=== PATIENT | female | born 1990 | race Two or more races ===

== ENCOUNTER 2024-08-09 14:00 | Inpatient (IN) | payer OTHER ==
[~2024-08-09] VITALS: Ht 162.6 cm; Wt 77.6 kg
[2024-08-25 02:20] VITALS: BP 127/72
[2024-08-25] MEDS ORDERED: RINGERS SOLUTION,LACTATED 1,000 ML IV SCH (03:00)
[2024-08-25] MEDS ORDERED: ERYTHROMYCIN BASE OPHT 1GM EACH TUBE OP ONE (03:01)
[2024-08-25] MEDS ORDERED: OXYTOCIN 20 UNITS/1000ML RL PIGGYBAG IV ONE (03:02)
[2024-08-25] MEDS ORDERED: LIDOCAINE HCL 1% 10ML VIAL ONE (03:02)
[2024-08-25] MEDS ORDERED: CHLORHEXIDINE GLUCONATE 120 ML BOTTLE TOP ONE (03:02)
[2024-08-25 03:10] LABS: HEMATOCRIT 39.6 % (36.0-45.00); HEMOGLOBIN 13.3 g/dL (12.0-15.00); MEAN CELL VOLUME 92.7 fL (80.00-100.00); MEAN CORPUSCULAR HEMOGLOBIN 31.2 pg (27.00-32.0); MEAN CORPUSCULAR HGB CONC 33.6 g/dl (32.0-36.0); PLATELET COUNT 278 K/uL (150-450); RED BLOOD COUNT 4.27 M/uL (4.00-6.00); RED CELL DISTRIBUTION WIDTH 14.8 % (11.5-14.5)
[2024-08-25] MEDS ORDERED: PRENATAL TABLE1 EAC1 PO (03:13)
[2024-08-25 03:39] LABS: INR < 0.93; PARTIAL THROMBOPLASTIN TIME 25.8 SECONDS (22.0-34.0); PROTHROMBIN TIME 9.9 SECONDS (9.0-11.5)
[2024-08-25 03:57] LABS: ALBUMIN 2.9 gm/dL (3.4-5.0); BILIRUBIN TOTAL 0.79 mg/dL (0.3-1.2); CALCIUM 9.6 mg/dL (8.5-10.1); CREATININE SERUM 0.7 mg/dL (0.55-1.02); GFR 95.79; GLOBULINA 4.4 G/DL (2.4-3.5); POTASSIUM 4.33 mEq/L (3.5-5.1); TOTAL PROTEIN 7.3 gm/dL (6.4-8.2)
[2024-08-25] MEDS ORDERED: OxyCODONE HCL/APAP UD (PERCOCET) PO PRN (06:45)
[2024-08-25] MEDS ORDERED: IBUprofen 400 MG TABLET PO PRN (06:45)
[2024-08-25] MEDS ORDERED: OXYTOCIN 1,000 ML IV SCH (06:45)
[2024-08-25 08:15] VITALS: BP 130/73
[2024-08-25 09:21] VITALS: BP 120/72
[2024-08-25 15:00] VITALS: BP 113/67
[2024-08-25] MEDS ORDERED: DOCUSATE SODIUM 100MG CAP PO SCH (21:00)
[2024-08-26 00:56] VITALS: BP 116/78
[2024-08-26 07:48] VITALS: BP 111/74
[2024-08-26 15:25] VITALS: BP 114/75
[2024-08-27] VITALS: BP 121/76
[2024-08-27 08:26] VITALS: BP 112/74
== END 2024-08-27 18:16 | disposition home or self-care (01) | DRG 807 ==
LOC: OB/GYN 08-21 14:00 → LDR 08-25 02:21 → OB/GYN 08-25 07:31
PROVIDERS: Obstetrics & Gynecology; ADMIT Obstetrics & Gynecology Maternal & Fetal Medicine; ATTEND Obstetrics & Gynecology Maternal & Fetal Medicine
PROC: 10E0XZZ Delivery of Products of Conception, External Approach (ICD-10-PCS; principal; 2024-08-25)
PROC: 0UQG7ZZ Repair Vagina, Via Natural or Artificial Opening (ICD-10-PCS; 2024-08-25)
PROC: 4A1HXCZ Monitoring of Products of Conception, Cardiac Rate, External Approach (ICD-10-PCS; 2024-08-25)
DX: O71.4 Obstetric high vaginal laceration alone (principal); Z37.0 Single live birth; Z3A.40 40 weeks gestation of pregnancy; Z20.822 Contact with and (suspected) exposure to COVID-19

== ENCOUNTER 2024-08-19 15:26 | Outpatient (CLI) | payer OTHER | END 2024-08-19 16:38 | disposition home or self-care (01) | LOC: NST 15:26 | PROVIDERS: ATTEND Obstetrics & Gynecology Gynecology | DX: Z3A.39 39 weeks gestation of pregnancy (principal) ==

== ENCOUNTER 2024-08-22 09:16 | Outpatient (CLI) | payer OTHER | END 2024-08-22 09:56 | disposition home or self-care (01) | LOC: NST 09:16 | PROVIDERS: ATTEND Obstetrics & Gynecology Gynecology | DX: Z3A.40 40 weeks gestation of pregnancy (principal) ==